=== PATIENT | male | born 1990 | race Caucasian/White ===

== ENCOUNTER 2019-07-08 03:22 | Emergency (ER) | payer BC ==
[~2019-07-08] VITALS: Ht 188 cm; Wt 163.6 kg
[2019-07-08 03:26] VITALS: TEMP 97.5
[2019-07-08 03:58] LABS: HEMATOCRIT 43.9 % (42.0-52.0); HEMOGLOBIN 14.4 g/dl (13.5-18.0); MEAN CELL VOLUME 86 fl (80.0-100.0); MEAN CORPUSCULAR HEMOGLOBIN 28 pg (27.0-31.0); MEAN CORPUSCULAR HGB CONC 33 g/dl (33.0-37.0); MEAN PLATELET VOLUME 11.3 fl (7.4-10.4); PLATELET COUNT 276 K/mm3 (130-400); REDCELL DISTRIBUTION WIDTH-CV 13.8 % (11.5-14.5)
[2019-07-08 04:10] LABS: ALBUMIN 4.1 gm/dL (3.5-5.0); BILIRUBIN,TOTAL 0.8 mg/dL (0.0-1.0); C-REACTIVE PROTEIN 1.7 mg/dL (0.0-0.9); CALCIUM 9.4 mg/dL (8.4-10.2); CREATININE, serum 0.77 (0.66-1.25); POTASSIUM 3.5 mmol/L (3.4-5.0); TOTAL PROTEIN 8.1 gm/dL (6.4-8.2)
[2019-07-08 05:16] LABS: BAND 1 % (0-10); EOSINOPHIL 1 % (0-4); LYMPHOCYTE 43 % (20.0-51.0); METAMYELOCYTE 1 % (0-0); NEUTROPHILS 45 % (42.0-75.2); PLATELET ESTIMATE NORMAL (NORMAL)
[2019-07-08 05:56] LABS: COLLECTION METHOD CLEAN CATCH
[2019-07-08 06:54] LABS: BUDDING YEAST Present /hpf; MUCOUS Present /lpf; PH 5 (5-8); SQUAMOUS EPITHELIAL 0-2 /hpf; URINE APPEARANCE Hazy; URINE BACTERIA None Seen /hpf; URINE BILIRUBIN Negative (NEGATIVE); URINE BLOOD 3+ (NEGATIVE); URINE COLOR Yellow; URINE GLUCOSE Negative (NEGATIVE); URINE KETONE Negative (NEGATIVE); URINE LEUKOCYTE ESTERASE Negative (NEGATIVE); URINE NITRATE Negative (NEGATIVE); URINE PROTEIN(semi-quant) 1+ (NEGATIVE); URINE RBC >50 /hpf; URINE UROBILINOGEN Negative (NEGATIVE)
[2019-07-08] MEDS ORDERED: NORCO 325 MG-51 TAB PO (07:09)
[2019-07-08] MEDS ORDERED: PHENERGAN 25 TA25 MG PO (07:09)
[2019-07-08] MEDS ORDERED: FLOMAX 0.40.4 MG/CAP PO (07:09)
[2019-07-08] MEDS ORDERED: ZOFRAN 4MG T4 MG/TAB PO (07:09)
[2019-07-08 07:32] VITALS: BP 133/80; PULSE 69
== END 2019-07-08 07:32 | disposition home or self-care (01) ==
LOC: COL.ER 03:22
PROVIDERS: Emergency Medicine
DX: N20.2 Calculus of kidney with calculus of ureter (principal); E66.9 Obesity, unspecified
CPT/HCPCS: J0780; J1885; J2270; J2405; J7030; Q9967